=== PATIENT | male | born 1975 | race Hispanic/Latino ===

== ENCOUNTER 2019-11-30 13:49 | Observation (INO) | payer SELFPAY ==
[~2019-11-30] VITALS: Ht 167.6 cm; Wt 72.6 kg
[2019-11-30] MEDS ORDERED: SODIUM CHLORIDE 0.9% 1000ML 1,000 ML IV STA (14:39)
[2019-11-30] MEDS ORDERED: LORAZEPAM INJ 2 MG/ML VIAL IV ONE (14:45)
--- NOTE | 2019-11-30 14:51 | Emergency Department Note ---
History of Present Illnes History of Present Illness Chief Complaint: Abdominal Complaints History of Present Illness This is a 44 year old male . Chief Complaint Comment PATIENT IN FROM HOME WITH COMPLAINTS OF NAUSEA, VOMITING, AND DIARRHEA STARTING TODAY; ALSO WITH COMPLAINTS OF ANXIETY ATTACK. PATIENT ALERT AND ORIENTED, TACHYPNEIC, Historian: Patient Arrival Mode: Car Onset (how long ago): day(s) Severity: moderate Onset quality: sudden Duration (how long): day(s) Chronicity: new Relieving factors: none Exacerbating factors: none Past Medical/Family History Physician Review I have reviewed the patient's past medical and family history. Any updates have been documented here. Past Medical History Recent Fever: No Clinical Suspicion of Infectio: No New/Unexplained Change in Ment: No Past Medical History: Anxiety Past Surgical History: None Review of Systems Review of Systems Constitutional: Reports no symptoms EENTM: Reports no symptoms Cardiovascular: Reports no symptoms Respiratory: Reports no symptoms Gastrointestinal: Reports as per HPI, Reports abdominal pain Genitourinary: Reports no symptoms Musculoskeletal: Reports no symptoms Integumentary: Reports no symptoms Neurological: Reports no symptoms Psychological: Reports no symptoms Endocrine: Reports no symptoms Hematological/Lymphatic: Reports no symptoms Physical Exam Related Data Allergies: Coded Allergies: No Known Allergies (Unverified , 11/30/19) Triage Vital Signs Vital Signs Date Time Temp Pulse Resp B/P (MAP) Pulse Ox O2 Delivery O2 Flow Rate FiO2 11/30/19 13:54 97.8 95 22 151/117 100 Room Air Vital signs reviewed: Yes Physical Exam CONSTITUTIONAL Constitutional: Present well-developed, Present well-nourished HENT HENT: Present normocephalic, Present atraumatic, Present oropharynx clear/moist, Present nose normal HENT L/R: Present left ext ear normal, Present right ext ear normal EYES Eyes: Reports PERRL, Reports conjunctivae normal NECK Neck: Present ROM normal PULMONARY Pulmonary: Present effort normal, Present breath sounds normal CARDIOVASCULAR Cardiovascular: Present regular rhythm, Present heart sounds normal, Present capillary refill normal, Present normal rate GASTROINTESTINAL Abdominal: Present soft, Present bowel sounds normal, Present distension, Present tender, Present guarding GENITOURINARY Genitourinary: Present exam deferred SKIN Skin: Present warm, Present dry MUSCULOSKELETAL Musculoskeletal: Present ROM normal NEUROLOGICAL Neurological: Present alert, Present oriented x 3, Present no gross motor or sensory deficits PSYCHOLOGICAL Psychological: Present mood/affect normal, Present judgement normal Results Laboratory Lab results reviewed: Yes Laboratory comments Laboratory Tests Test 11/30/19 17:22 11/30/19 15:50 White Blood Count 10.18 x10e3/uL (4.8-10.8) Red Blood Count 4.74 x10e6/uL (4.3-5.7) Hemoglobin 14.4 g/dL (14.0-18.0) Hematocrit 42.4 % (38.2-49.6) Mean Corpuscular Volume 89.5 fL (81-99) Mean Corpuscular Hemoglobin 30.4 pg (28-32) Mean Corpuscular Hemoglobin Concent 34.0 g/dL (31-35) Red Cell Distribution Width 12.6 % (11.7-14.4) Platelet Count 270 x10e3/uL (140-360) Neutrophils (%) (Auto) 88.1 % (38.7-80.0) Lymphocytes (%) (Auto) 8.2 % (18.0-39.1) Monocytes (%) (Auto) 2.8 % (4.4-11.3) Eosinophils (%) (Auto) 0.0 % (0.0-6.0) Basophils (%) (Auto) 0.4 % (0.0-1.0) Neutrophils # (Auto) 9.0 (2.1-6.9) Lymphocytes # (Auto) 0.8 (1.0-3.2) Monocytes # (Auto) 0.3 (0.2-0.8) Eosinophils # (Auto) 0.0 (0.0-0.4) Basophils # (Auto) 0.0 (0.0-0.1) Absolute Immature Granulocyte (auto 0.05 x10e3/uL (0-0.1) Sodium Level 139 mmol/L (136-145) Potassium Level 3.8 mmol/L (3.5-5.1) Chloride Level 104 mmol/L (98-107) Carbon Dioxide Level 23 mmol/L (22-29) Anion Gap 15.8 mmol/L (8-16) Blood Urea Nitrogen 14 mg/dL (7-26) Creatinine 0.91 mg/dL (0.72-1.25) Estimat Glomerular Filtration Rate > 60 ML/MIN (60-) BUN/Creatinine Ratio 15 (6-25) Glucose Level 100 mg/dL (74-118) Calcium Level 9.3 mg/dL (8.4-10.2) Total Bilirubin 0.7 mg/dL (0.2-1.2) Aspartate Amino Transf (AST/SGOT) 25 IU/L (5-34) Alanine Aminotransferase (ALT/SGPT) 37 IU/L (0-55) Alkaline Phosphatase 110 IU/L (40-150) Creatine Kinase 213 IU/L (30-200) Creatine Kinase MB 2.20 ng/mL (0-5.0) Troponin I < 0.001 ng/mL (0-0.300) Total Protein 7.7 g/dL (6.5-8.1) Albumin 4.6 g/dL (3.5-5.0) Globulin 3.1 g/dL (2.3-3.5) Albumin/Globulin Ratio 1.5 (0.8-2.0) Lipase 15 U/L (8-78) Imaging Imaging results reviewed: Yes Impressions IMPRESSION: Small bowel obstruction with dilated left abdominal small bowel loops measuring up to 3.9 cm with air-fluid levels, fecalization of small bowel contents, and focal wall thickening. No definite transition point identified. No free air. Diffuse hepatic steatosis. Signed by: Aleena Jovel MD on 11/30/2019 4:20 PM Assessment & Plan Medical Decision Making MDM 44-year-old male arrives to the ED with length of diffuse abdominal pain. CT findings concerning for small bowel obstruction. Case discussed with Dr. Hiwot Parikh from general surgery on-call states findings are likely secondary to gastroenteritis. Patient empirically covered antibiotics and admitted for observation. A.m. chest x-ray labwork ordered. Patient placed on maintenance fluids. Assessment & Plan Final Impression: (1) SBO (small bowel obstruction) Depart Disposition: ADMITTED Last Vital Signs Date Time Temp Pulse Resp B/P (MAP) Pulse Ox O2 Delivery O2 Flow Rate FiO2 11/30/19 13:54 97.8 95 22 151/117 100 Room Air Medications in the ED Sodium Chloride 1,000 ml @ 0 mls/hr Q0M STAT IV ; Start 11/30/19 at 14:39; Stop 11/30/19 at 14:40 Lorazepam 1 mg ONCE ONCE IV ; Start 11/30/19 at 14:45; Stop 11/30/19 at 14:46; Status UNV MARY KAY CHAVES, DO Nov 30, 2019 14:52
[2019-11-30] MEDS ORDERED: IOPAMIDOL 370 MG/ML 200 ML INFUS..BTL INJ ONE (15:16)
[2019-11-30] MEDS ORDERED: SODIUM CHLORIDE 0.9% 50ML 50 ML ONE (15:16)
[2019-11-30 16:10] LABS: BASOPHILS % 0.4 % (0.0-1.0); HEMATOCRIT 42.4 % (38.2-49.6); HEMOGLOBIN 14.4 g/dL (14.0-18.0); LYMPHOCYTES # (AUTO) 0.8 (1.0-3.2); LYMPHOCYTES % 8.2 % (18.0-39.1); MEAN CORPUSCULAR HEMOGLOBIN 30.4 pg (28-32); MEAN CORPUSCULAR VOLUME 89.5 fL (81-99); MONOCYTES # (AUTO) 0.3 (0.2-0.8); MONOCYTES % 2.8 % (4.4-11.3); NEUTROPHILS % 88.1 % (38.7-80.0); PLATELET COUNT 270 x10e3/uL (140-360); RED BLOOD COUNT 4.74 x10e6/uL (4.3-5.7); RED CELL DISTRIBUTION WIDTH 12.6 % (11.7-14.4)
--- NOTE | 2019-11-30 16:24 | Diagnostic Imaging Report ---
EXAM: CT Abdomen and Pelvis WITH intravenous contrast INDICATION: Abdominal pain COMPARISON: None. TECHNIQUE: Abdomen and pelvis were scanned utilizing a multidetector helical scanner from the lung base to the pubic symphysis after administration of IV contrast. Coronal and sagittal reformations were obtained. Routine protocol was performed. Scan was performed during portal venous phase. IV CONTRAST: 100mL of Isovue 370 ORAL CONTRAST: Water RADIATION DOSE: Total DLP: 368 mGy*cm Dose modulation, iterative reconstruction, and/or weight based adjustment of the mA/kV was utilized to reduce the radiation dose to as low as reasonably achievable. FINDINGS: LOWER THORAX: Normal. HEPATOBILIARY: Diffuse hepatic steatosis. No focal liver lesion. No biliary ductal dilation. Unremarkable gallbladder. SPLEEN: No splenomegaly. PANCREAS: No focal masses or ductal dilatation. ADRENALS: No adrenal nodules. KIDNEYS/URETERS: No hydronephrosis, stones, or solid mass lesions. PELVIC ORGANS/BLADDER: Unremarkable. PERITONEUM / RETROPERITONEUM: No free air or fluid. LYMPH NODES: No lymphadenopathy. VESSELS: Unremarkable. GI TRACT: Multiple loops of dilated small bowel in the left abdomen measure up to 3.9 cm maximum diameter with associated air-fluid levels and fecalization of small bowel contents. There is associated wall thickening of several loops of small bowel. No definite transition point identified. No definite pneumatosis. No free air. BONES AND SOFT TISSUES: Unremarkable. IMPRESSION: Small bowel obstruction with dilated left abdominal small bowel loops measuring up to 3.9 cm with air-fluid levels, fecalization of small bowel contents, and focal wall thickening. No definite transition point identified. No free air. Diffuse hepatic steatosis. Signed by: Aleena Jovel MD on 11/30/2019 4:20 PM
[2019-11-30 16:25] LABS: ALANINE AMINOTRANSFERASE 37 IU/L (0-55); ALBUMIN 4.6 g/dL (3.5-5.0); ALBUMIN/GLOBULIN RATIO 1.5 (0.8-2.0); ALKALINE PHOSPHATASE 110 IU/L (40-150); ANION GAP 15.8 mmol/L (8-16); BLOOD UREA NITROGEN 14 mg/dL (7-26); BUN/CREATININE RATIO 15 (6-25); CALCIUM 9.3 mg/dL (8.4-10.2); CARBON DIOXIDE 23 mmol/L (22-29); CHLORIDE 104 mmol/L (98-107); CREATINE KINASE 213 IU/L (30-200); CREATININE, SERUM 0.91 mg/dL (0.72-1.25); EST GLOMERULAR FILTRATION RATE > 60 ML/MIN (60-); GLUCOSE 100 mg/dL (74-118); POTASSIUM 3.8 mmol/L (3.5-5.1); SODIUM 139 mmol/L (136-145)
[2019-11-30] MEDS ORDERED: ONDANSETRON HCL INJ 2MG/ML 2ML 2 MG/ML VIAL IV PRN (16:45)
[2019-11-30] MEDS ORDERED: MORPHINE SULFATE 2 MG/ML SYR 1ML IV PRN (16:45)
[2019-11-30] MEDS ORDERED: SODIUM CHLORIDE 0.9% 1000ML 1,000 ML IV SCH (16:45)
[2019-11-30] MEDS: SODIUM CHLORIDE 0.9% 250ML IRRIG IR SCH ×2 (16:45→20:45)
[2019-11-30] MEDS ORDERED: D5.45%NS/KCL 20MEQ 1,000 ML IV ONE ×2 (16:45→18:30)
[2019-11-30] MEDS ORDERED: MORPHINE SULFATE INJ 4 MG/ML INJ 1ML IV PRN (17:00)
--- NOTE | 2019-11-30 17:17 | NUR ---
Received report from AMIRA Avila in the ER. States patient was anxious and unable to place NG tube at this time. Patient will be coming to room 209
--- NOTE | 2019-11-30 17:25 | NUR ---
AMIRA Avila in the ER called to report that Dr. Parikh saw the patient in the ER and said that patient does not need an NG tube at this time, will start on IV abx.
[2019-11-30] MEDS ORDERED: HYDROMORPHONE 1MG/1ML INJ IV PRN (17:45)
[2019-11-30 18:12] VITALS: BP 127/77
[2019-11-30 18:23] VITALS: BP 127/77
--- NOTE | 2019-11-30 19:22 | Consultation ---
DATE OF CONSULTATION: 11/30/2019 REASON FOR CONSULTATION: Small bowel obstruction. HISTORY OF PRESENT ILLNESS: The patient is an otherwise healthy 44-year-old male, who is admitted via the emergency room complaining of crampy abdominal pain, explosive nausea and vomiting since yesterday night after eating between "jicama or Brazilian turnip". The patient in the emergency room had a CT scan that revealed possible small bowel obstruction. There was no transition zone seen. He had no previous surgical history in the past. His white count is 16,000 with shift to the left. Electrolytes were normal. Lipase was normal. PHYSICAL EXAMINATION: GENERAL: Revealed a 44-year-old male awake and alert. He is somewhat anxious. He complains of numbness of his fingers after an NG tube placement was attempted, which he did not tolerate. HEAD, EYES, EARS, NOSE, AND THROAT: Unremarkable. LUNGS: Clear. HEART: Regular sinus rhythm. ABDOMEN: Soft and nontender. Bowel sounds are somewhat hyperactive. EXTREMITIES: Reveals no clubbing, cyanosis, or edema. IMPRESSION: Most likely this represents food poisoning or enteritis following the ingestion of Brazilian turnip. Given the fact that the presentation is accompanied by explosive diarrhea, vomiting, and CT scan even though shows air-fluid levels and some bowel dilatation, but does not show a transition zone and the fact that the patient does not have any previous surgery most likely these represent a food poisoning picture. At this point, we will hold off on placing an NG tube, admit for hydration, serial x-ray and repeat labs in the morning. Thank you very much. MD GILSON Lozoya/CHANDLER /[id number]
--- NOTE | 2019-11-30 19:37 | NUR ---
received report from day nurse. patient is resting comfortably in the bed. bed is in the lowest position and call light is within reach. will continue to monitor patient.
[2019-11-30] MEDS: CIPROFLOXACIN 400 MG/D5W 200ML 200 ML IV SCH (19:51)
[2019-11-30 20:00] VITALS: BP 124/76
[2019-11-30] MEDS: METRONIDAZOLE 500MG/NS 100ML 100 ML IV SCH (22:19)
[2019-12-01] VITALS (7 sets, daily range): BP systolic 104–124; BP diastolic 65–85
[2019-12-01] MEDS: SODIUM CHLORIDE 0.9% 250ML IRRIG IR SCH ×2 (00:45→04:45)
[2019-12-01] MEDS: METRONIDAZOLE 500MG/NS 100ML 100 ML IV SCH ×2 (03:29→12:40)
[2019-12-01] MEDS: CIPROFLOXACIN 400 MG/D5W 200ML 200 ML IV SCH ×2 (05:17→17:32)
[2019-12-01 05:42] LABS: BASOPHILS % 0.5 % (0.0-1.0); EOSINOPHILS # (AUTO) 0.2 (0.0-0.4); EOSINOPHILS % 2.2 % (0.0-6.0); HEMATOCRIT 38.8 % (38.2-49.6); HEMOGLOBIN 12.8 g/dL (14.0-18.0); LYMPHOCYTES # (AUTO) 2.3 (1.0-3.2); LYMPHOCYTES % 30.2 % (18.0-39.1); MEAN CORPUSCULAR VOLUME 91.1 fL (81-99); MONOCYTES # (AUTO) 0.6 (0.2-0.8); NEUTROPHILS # (AUTO) 4.5 (2.1-6.9); NEUTROPHILS % 58.8 % (38.7-80.0); PLATELET COUNT 215 x10e3/uL (140-360); RED BLOOD COUNT 4.26 x10e6/uL (4.3-5.7); RED CELL DISTRIBUTION WIDTH 12.7 % (11.7-14.4)
[2019-12-01 06:02] LABS: ALANINE AMINOTRANSFERASE 28 IU/L (0-55); ALBUMIN 3.8 g/dL (3.5-5.0); ALBUMIN/GLOBULIN RATIO 1.5 (0.8-2.0); ALKALINE PHOSPHATASE 86 IU/L (40-150); ANION GAP 10.8 mmol/L (8-16); BLOOD UREA NITROGEN 12 mg/dL (7-26); BUN/CREATININE RATIO 14 (6-25); CARBON DIOXIDE 24 mmol/L (22-29); CHLORIDE 109 mmol/L (98-107); CREATININE, SERUM 0.84 mg/dL (0.72-1.25); EST GLOMERULAR FILTRATION RATE > 60 ML/MIN (60-); GLUCOSE 94 mg/dL (74-118); POTASSIUM 3.8 mmol/L (3.5-5.1); SODIUM 140 mmol/L (136-145)
--- NOTE | 2019-12-01 07:00 | NUR ---
RECEIVED BEDSIDE SHIFT REPORT FROM OFF GOING NIGHT NURSE. PATIENT IN STABLE CONDITION, NO S/S OF DISTRESS NOTED. RESPIRATIONS EVEN AND NON-LABORED. NO PAIN VOICED. IV SITE ASYMPTOMATIC AND PATENT, TRANSPARENT DRESSING C/D/I. TELEMETRY APPLIED. BED IN LOWEST POSITION AND LOCKED, SIDE RAILS X2, NONSKID SOCKS APPLIED. CALL LIGHT WITHIN REACH.
--- NOTE | 2019-12-01 08:39 | Diagnostic Imaging Report ---
Exam: KUB - 2 views Indication: Small bowel obstruction Comparison: CT abdomen and pelvis of 11/30/2019 Findings: EKG leads overlie the upper abdomen. Interval decrease in previously dilated loops of small bowel in the left abdomen. Gas pattern now appears nonobstructive. No free air. No acute osseous injury. Residual IV contrast material in the bladder. No abnormal calcifications. Impression: Nonobstructive bowel gas pattern. No free air. Signed by: Aleena Jovel MD on 12/01/2019 8:36 AM
--- OUTSIDE RECORDS SUMMARY | 2019-12-01 10:28 | XMS REPORT | Continuity of Care Document ---
Author Author [facility] t Organization [facility] Address [address] [place] [id number] Phone Unavailable Care Team Providers Care Caterers Helper Name Role Phone DONYA CALLE Attphys Unavailable ALVA DONYA Admphyheather Unavailable Problems This patient has no known problems. Allergies, Adverse Reactions, Alerts This patient has no known allergies or adverse reactions. Medications This patient has no known medications. Procedures This patient has no known procedures. Results Test Description Test Time Test Comments Results Result Comments Source ABDOMEN-1VIEW (KUB) 2019-12-01 08:34:00 [place] [address] Patient Name: ELLA BOYCE MR #: [id number] : 1975 Age/Sex: 44/M Req #: [id number] Adm Physician: DONYA CALLE MD Ordered by: MARY KAY CHAVES DO Report #: [id number] Location: MED/SURG2 Room/Bed: [facility] Procedure: [id number] DX/ABDOMEN-1VIEW (KUB) Exam Date: 12/01/19 Exam Time: 0605 REPORT STATUS: Signed Exam: KUB - 2 views Indication: Small bowel obstruction Comparison: CT abdomen and pelvis of 11/30/2019 Findings: EKG leads overlie the upper abdomen. Interval decrease in previously dilated loops of small bowel in the left abdomen. Gas pattern now a ppears nonobstructive. No free air. No acute osseous injury. Residual IV contrast material in the bladder. No abnormal calcifications. Impression: Nonobstructive bowel gas pattern. No free air. Signed by: Key Shannon MD on 12/01/2019 8:36 AM Dictated By: KEY SHANNON MD 5 Transcribed By: DONTE on 12/01/19835 COPY TO: MARY KAY CHAVES DO CT ABDOMEN/PELVIS W 2019-11-30 16:10:00 [place] [address] Patient Name: ELLA BOYCE MR #: [id number] : 1975 Age/Sex: 44/M Req #: [id number] Adm Physician: Ordered by: MARY KAY CHAVES DO Report #: [id number] Location: ER Room/Bed: Procedure: [id number] CT/CT ABDOMEN/PELVIS W Exam Date: 11/30/19 Exam Time: 1515 REPORT STATUS: Signed EXAM: CT Abdomen and Pelvis WITH intravenous contrast INDICATION: Abdominal pain COMPARISON: None. TECHNIQUE: Abdomen and pelvis were scanned utilizing a multidetector helical scanner from the lung base to the pubic symphysis after administration of IV contrast. Coronal and sagittal reformations were obtained. Routine protocol was performed. Scan was performed during portal venous phase. IV CONTRAST: 100mL of Isovue 370 ORAL CONTRAST: Water RADIATION DOSE: Total DLP: 368 mGy*cm Dose modulation, iterative reconstruction, and/or weight based adjustment of the mA/kV was utilized to reduce the radiation dose to as low as reasonably achievable. FINDINGS: LOWER THORAX: Normal. HEPATOBILIARY: Diffuse hepatic steatosis. No focal liver lesion. No biliary ductal dilation. Unremarkable gallbladder. SPLEEN: No splenomegaly. PANCREAS: No focal masses or ductal dilatation. ADRENALS: No adrenal nodules. KIDNEYS/URETERS: No hydronephrosis, stones, or solid mass lesions. PELVIC ORGANS/BLADDER: Unremarkable. PERITONEUM / RETROPERITONEUM: No free air or fluid. LYMPH NODES: No lymphadenopathy. VESSELS: Unremarkable. GI TRACT: Multiple loops of dilated small bowel in the left abdomen measure up to 3.9 cm maximum diameter with associated air-fluid levels and fecalization of small bowel contents. There is associated wall thickening of several loops of small bowel. No definite transition point identified. No definite pneumatosis. No free air. BONES AND SOFT TISSUES: Unremarkable. IMPRESSION: Small bowel obstruction with dilated left abdominal small bowel loops measuring up to 3.9 cm with air-fluid levels, fecalization of small bowel contents, and focal wall thickening. No definite transition point identified. No free air. Diffuse hepatic steatosis. Signed by: Key Shannon MD on 11/30/2019 4:20 PM Dictated By: KEY SHANNON MD 162 Transcribed By: DONTE on 11/30/19 1620 COPY TO: MARY KAY CHAVES DO
--- NOTE | 2019-12-01 11:12 | NUR ---
GAVE PACKET OF INFORMATION WITH [facility] [employer] FOR ASSISTANCE WITH LOW TO NO INCOME TO PATIENT. RESOURCES THAT PATIENT MAY BE ABLE TO FOLLOW UP UPON DISCHARGE. PT EDUCATED ON EACH RESOURCE AND UNDERSTANDING HOW TO FOLLOW UP TO SEE IF QUALIFIED FOR EACH RESOURCE.
--- NOTE | 2019-12-01 18:44 | NUR ---
PATIENT DISCHARGED HOME. PATIENT OFF THE UNIT @ 1843 VIA WHEELCHAIR ACCOMPANIED BY PCT TO THE LOBBY. PATIENT IN STABLE CONDITION, NO S/S OF DISTRESS NOTED. NO PAIN VOICED. IV ACCESS REMOVED WITH TIP INTACT. ALL PERSONAL ITEMS TAKEN WITH THE PATIENT. DISCHARGE TEACHING AND INSTRUCTION GIVEN TO THE PATIENT. PATIENT VERBALIZED UNDERSTANDING. DISCHARGE PAPERWORK AND PRESCRIPTION GIVEN TO THE PATIENT.
--- NOTE | 2019-12-03 06:02 | Discharge Summary ---
CHIEF COMPLAINT: Abdominal pain, nausea, and diarrhea. HOSPITAL COURSE: This is a 44-year-old male, who got admitted yesterday for having abdominal pain, vomiting, and diarrhea that began after eating a food from outside. The patient reported with an epigastric pain and diaphoresis. Abdominal x-ray showed no obstruction. He got evaluated by the surgeon. The patient also received IV Flagyl and Cipro. He is afebrile. Currently upon my assessment, the patient denies any abdominal pain. We will start him on a soft diet and he has been cleared by the surgeon for discharge. We will send him home on Cipro 250 mg p.o. b.i.d. for three days. PAST MEDICAL HISTORY: He denies any past medical history or surgical history. FOLLOWUP: The patient can follow up with primary care physician as an outpatient. Dictated by Yesika Jara NP MD MIGUEL Jorge/CHANDLER /[id number]
== END 2019-12-01 18:45 | disposition home or self-care (01) ==
LOC: ER 14:15 → ERHOLD 16:41 → MED/SURG2 17:46
PROVIDERS: ADMIT Internal Medicine; ATTEND Internal Medicine
DX: A05.9 Bacterial foodborne intoxication, unspecified (principal); F41.9 Anxiety disorder, unspecified; E86.0 Dehydration; R03.0 Elevated blood-pressure reading, without diagnosis of hypertension; Z11.59 Encounter for screening for other viral diseases
CPT/HCPCS: 36415 ×2; 74018; 74177; 80053 ×2; 82550; 82553; 83690; 84484; 85025 ×2; 99284; G0378 ×2; J0744 ×2; J2060; J2270; J2405; J7030; Q9967; U0002